=== PATIENT | male | born 1970 | race Caucasian/White ===

== ENCOUNTER 2021-07-02 09:29 | Emergency (ER) | payer OTHER ==
[2021-07-02 10:32] VITALS: BP 127/86; PULSE 80
[2021-07-02] MEDS ORDERED: Dexamethasone 4 MG/ML SDV PO ONE (10:52)
--- NOTE | 2021-07-02 10:59 | EDM.PDOC ---
ED HPI GENERAL MEDICAL PROBLEM - General Chief Complaint: Respiratory Problem Stated Complaint: COVID POS-TROUBLE BREATHING Time Seen by Provider: 07/02/21 10:25 Source of Information: Reports: Patient History Limitations: Reports: No Limitations - History of Present Illness INITIAL COMMENTS - FREE TEXT/NARRATIVE: 51-year-old male diagnosed with Covid 7 days ago, has a history of asthma and is feeling persistent shortness of breath and weakness and is wondering if there is anything more that can be done. He is fully vaccinated. His vitals are excellent, his O2 saturations are 96% and his breathing is nonlabored. Onset: Gradual Duration: Day(s): (Symptoms for over 7 days) Associated Symptoms: Reports: Weakness, Other (Fatigue, shortness of breath) - Related Data Allergies Allergy/AdvReac Type Severity Reaction Status Date / Time No Known Allergies Allergy Verified 07/02/21 10:32 Home Meds: Home Meds Hydrochlorothiazide/Lisinopril [Lisinopril-HCTZ 20-25 MG] 1 tab PO DAILY 07/07/16 [History] Sertraline [Zoloft] 25 mg PO DAILY 07/07/16 [History] Albuterol Sulfate [Albuterol Sulfate Hfa] 8.5 gm IH Q4HR PRN 07/02/21 [History] Montelukast Sodium [Singulair] 10 mg PO DAILY 07/02/21 [History] atorvaSTATin Calcium [Atorvastatin Calcium] 40 mg PO DAILY 07/02/21 [History] Past Medical History Cardiovascular History: Reports: High Cholesterol, Hypertension Respiratory History: Reports: Asthma Musculoskeletal History: Reports: Fracture - Infectious Disease History Infectious Disease History: Reports: Chicken Pox - Past Surgical History Musculoskeletal Surgical History: Reports: Arthroscopic Procedure, Shoulder Surgery Social & Family History - Tobacco Use Tobacco Use Status *Q: Current Every Day Tobacco User Years of Tobacco use: 32 Packs/Tins Daily: 1 - Caffeine Use Caffeine Use: Reports: Coffee - Recreational Drug Use Recreational Drug Use: No ED ROS GENERAL - Review of Systems Review Of Systems: See Below Constitutional: Reports: Malaise, Decreased Appetite HEENT: Denies: Throat Pain Respiratory: Reports: Shortness of Breath, Wheezing, Cough GI/Abdominal: Reports: Diarrhea, Nausea. Denies: Abdominal Pain, Vomiting Skin: Reports: No Symptoms Neurological: Reports: Headache (Mild headache) Psychiatric: Reports: No Symptoms ED EXAM, GENERAL - Physical Exam Exam: See Below Exam Limited By: No Limitations General Appearance: Alert, No Apparent Distress Eye Exam: Bilateral Eye: Normal Inspection Head: Atraumatic Respiratory/Chest: No Respiratory Distress, Lungs Clear Cardiovascular: Regular Rate, Rhythm Extremities: Normal Inspection Neurological: Alert, Oriented Psychiatric: Normal Affect, Normal Mood Skin Exam: Warm, Dry Course - Vital Signs Last Recorded V/S: Last Vital Signs Temp 97.2 F 07/02/21 10:28 Pulse 80 07/02/21 10:28 Resp 18 07/02/21 10:28 BP 127/86 07/02/21 10:28 Pulse Ox 98 07/02/21 10:28 - Orders/Labs/Meds Meds: Medications Discontinued Medications Generic Name Dose Route Start Last Admin Trade Name Babak PRN Reason Stop Dose Admin Dexamethasone 8 mg 07/02/21 10:52 Dexamethasone 4 Mg/Ml Sdv PO 07/02/21 10:53 ONETIME ONE Dexamethasone 8 mg 07/02/21 11:30 07/02/21 11:26 Dexamethasone 2 Mg Tab PO 07/02/21 11:31 8 mg ONETIME ONE Administration - Re-Assessments/Exams Free Text/Narrative Re-Assessment/Exam: 07/02/21 12:56 Patient subjective findings are excellent, is saturations are 96%, lungs clear and respiratory rate is normal. Blood pressure is normal. Patient was given 8 mg of oral dexamethasone will be placed on 60 mg of prednisone daily for the next 2 to 5 days. I think he is doing well, just needs some more time for recuperation. Departure - Departure Time of Disposition: 11:27 Disposition: Home, Self-Care 01 Clinical Impression: COVID-19 - Discharge Information Instructions: COVID-19 Referrals: PCP,None [Primary Care Provider] - Forms: ED Department Discharge Care Plan Goals: Starting tomorrow, take 6 pills of prednisone with your first food for up to 5 consecutive days. Rest, fluids, and increase activity as tolerated. Return anytime if worsening despite treatment. Sepsis Event Note (ED) - Focused Exam Vital Signs: Vital Signs Temp Pulse Resp BP Pulse Ox 07/02/21 10:28 97.2 F 80 18 127/86 98
[2021-07-02] MEDS ORDERED: Dexamethasone 2 MG Tab PO ONE (11:30)
== END 2021-07-02 11:28 | disposition home or self-care (01) ==
LOC: JP.ED 09:29
DX: U07.1 COVID-19 (principal); E78.00 Pure hypercholesterolemia, unspecified; I10 Essential (primary) hypertension; J45.909 Unspecified asthma, uncomplicated; Z72.0 Tobacco use; Z79.899 Other long term (current) drug therapy
CPT/HCPCS: 99284; J8540